=== PATIENT | female | born 1960 | race Caucasian/White ===

== ENCOUNTER 2020-11-29 14:45 | Outpatient (CLI) | payer BC, SELFPAY ==
--- NOTE | ~2020-11-29 | MR_ITS ---
EXAMINATION: MR brain/brain stem wo con EXAM DATE: 11/29/2020 16:37 INDICATION: Vertigo, fatigue, tinnitus. TECHNIQUE: Magnetic resonance imaging (MRI) of the brain/brain stem obtained without contrast. Sagitt al T1, axial diffusion, gradient echo (T2*), T1, T2, FLAIR sequences obtained. There is no prior st udy for comparison. FINDINGS: There are no areas of restricted diffusion to suggest acute infarction. There is no acute hemorrhage seen on the T2*, a hemosiderin sensitive sequence. No intraparenchymal brain mass. The ve ntricles are normal in size. There are no extra-axial collections. Flow voids are seen in the cereb ral arteries on the T2-weighted sequences consistent with their expected patency. The orbits are unr emarkable. Soft tissue is unremarkable. IMPRESSION: 1. Unremarkable brain MRI examination. Reviewed, dictated and finalized at location B.
--- NOTE | ~2020-11-29 | MR_ITS ---
EXAMINATION: MR cervical spine wo con EXAM DATE: 11/29/2020 16:37 INDICATION: Vertigo, chronic neck pain, intermittent right-sided weakness progressively worsening ove r 3 years. TECHNIQUE: Multi-sequential, multiplanar MR images of the cervical spine were obtained without contra st. Axial T2, axial T2 MERGE sequence. Sagittal T1, T2, T2 fat saturation images also obtained. Cor relation is made to outside MR cervical spine from 11/08/2020. FINDINGS: There is moderate to severe disc disease from C3 through C6, moderate at C6-7. There is 2 mm retrolisthesis C4 on C5, C5 on C6, 1-2 mm retrolisthesis C3 on C4 and C6 on C7. The spinal cord si gnal intensity and intrinsic morphology is normal. Cervicomedullary junction is normal in appearance. There are no suspicious marrow signal abnormalities. Paraspinal soft tissue is unremarkable. Level by level evaluation: C2-C3: Disc does not extend beyond the endplate margin. Uncovertebral joint arthropathy: Mild left. Facet joint arthropathy: None. Neural foraminal stenosis: No stenosis. Central canal stenosis: No stenosis. C3-C4: There is a mild diffuse disc bulge. Uncovertebral joint arthropathy: Mild bilateral. Facet joint arthropathy: Mild bilateral. Neural foraminal stenosis: No stenosis. Central canal stenosis: No stenosis. C4-C5: There is a mild diffuse disc bulge. Uncovertebral joint arthropathy: Mild to moderate left, mild right. Facet joint arthropathy: Mild to moderate bilateral. Neural foraminal stenosis: Mild left. Central canal stenosis: No stenosis. C5-C6: There is a mild diffuse disc bulge. Uncovertebral joint arthropathy: Moderate left, mild to moderate right. Facet joint arthropathy: Mild to moderate bilateral. Neural foraminal stenosis: Moderate left, mild right. Central canal stenosis: Minimal. C6-C7: There is a minimal diffuse disc bulge. Uncovertebral joint arthropathy: Mild to moderate bilateral. Facet joint arthropathy: Mild bilateral. Neural foraminal stenosis: Mild left. Central canal stenosis: No stenosis. C7-T1: Disc does not extend beyond the endplate margin. Uncovertebral joint arthropathy: Mild bilateral. Facet joint arthropathy: Mild bilateral. Neural foraminal stenosis: No stenosis. Central canal stenosis: No stenosis. Probably no interval change but prior MR image quality is suboptimal. IMPRESSION: 1. Advanced cervical disc disease. 2. Neural foraminal stenosis as above. Reviewed, dictated and finalized at location G.
== END 2020-11-29 14:46 | disposition home or self-care (01) ==
PROVIDERS: PCP Registered Nurse
DX: R42 Dizziness and giddiness (principal); R53.82 Chronic fatigue, unspecified; H93.13 Tinnitus, bilateral; H91.93 Unspecified hearing loss, bilateral; R51.9 Headache, unspecified; M50.31 Other cervical disc degeneration, high cervical region; M48.02 Spinal stenosis, cervical region; M50.320 Other cervical disc degeneration, mid-cervical region, unspecified level
CPT/HCPCS: 70551; 72141